=== PATIENT | male | born 1965 ===

== ENCOUNTER 2023-07-07 04:02 | Day surgery (SDC) | payer OTHER ==
[2023-07-05 13:44] VITALS: BMI 25.7
[2023-07-07] MEDS ORDERED: BUPIVACAINE HCL/PF 0.75% 10 ML VIAL ONE (07:44)
[2023-07-07] MEDS ORDERED: LIDOCAINE HCL/PF 1% SDV 5ML VIAL ONE (07:44)
[2023-07-07] MEDS ORDERED: ACETAMINOPHEN 500 MG TABLET (FP) PO PRN (11:04)
[2023-07-07] MEDS ORDERED: BUPIVACAINE HCL/PF 0.75% 10 ML VIAL NR ONE ×2 (13:41→13:42)
[2023-07-07] MEDS ORDERED: LIDOCAINE 1% P/F 10 MG/ML VIAL INF ONE ×2 (13:41→13:42)
[2023-07-07 14:03] VITALS: RESP 20
[2023-07-07 15:19] VITALS: BP 137/79; PULSE 69; TEMP 97.8
== END 2023-07-07 15:20 | disposition home or self-care (01) ==
LOC: JASU-SURG 04:02
PROVIDERS: ATTEND Pain Medicine Pain Medicine
PROC: 3E0T33Z Introduction of Anti-inflammatory into Peripheral Nerves and Plexi, Percutaneous Approach (ICD-10-PCS; 2023-07-07)
PROC: 3E0T3BZ Introduction of Anesthetic Agent into Peripheral Nerves and Plexi, Percutaneous Approach (ICD-10-PCS; principal; 2023-07-07 14:45)
DX: M47.816 Spondylosis without myelopathy or radiculopathy, lumbar region (principal)
CPT/HCPCS: 76000-TC-FY

== ENCOUNTER 2023-08-11 04:16 | Day surgery (SDC) | payer OTHER ==
[2023-08-08 11:46] VITALS: BMI 25.7
[~2023-08-11 04:16] MED LIST: BUPIVACAINE HCL/PF 0.75% 10 ML VIAL NR ONE; LIDOCAINE 1% P/F 10 MG/ML VIAL INF ONE
[2023-08-11] MEDS ORDERED: BUPIVACAINE HCL/PF 0.75% 10 ML VIAL ONE (07:18)
[2023-08-11] MEDS ORDERED: LIDOCAINE HCL/PF 1% SDV 5ML VIAL ONE (07:19)
[2023-08-11 07:58] VITALS: RESP 18
[2023-08-11] MEDS ORDERED: LIDOCAINE 1% P/F 10 MG/ML VIAL INF ONE (10:19)
[2023-08-11] MEDS ORDERED: BUPIVACAINE HCL/PF 0.75% 10 ML VIAL NR ONE (10:19)
[2023-08-11 10:46] VITALS: TEMP 97.8
[2023-08-11 10:55] VITALS: BP 123/76; PULSE 69
[2023-08-11] MEDS ORDERED: ACETAMINOPHEN 500 MG TABLET (FP) PO PRN (11:10)
== END 2023-08-11 10:52 | disposition home or self-care (01) ==
LOC: JASU-SURG 04:16
PROVIDERS: ATTEND Pain Medicine Pain Medicine
PROC: 3E0T33Z Introduction of Anti-inflammatory into Peripheral Nerves and Plexi, Percutaneous Approach (ICD-10-PCS; 2023-08-11)
PROC: 3E0T3BZ Introduction of Anesthetic Agent into Peripheral Nerves and Plexi, Percutaneous Approach (ICD-10-PCS; principal; 2023-08-11 09:30)
DX: M47.816 Spondylosis without myelopathy or radiculopathy, lumbar region (principal)
CPT/HCPCS: 76000-TC-FY

== ENCOUNTER 2023-12-19 04:21 | Day surgery (SDC) | payer OTHER ==
[2023-12-18 10:31] VITALS: BMI 25.7
[2023-12-19] MEDS ORDERED: LIDOCAINE HCL/PF 2% SDV 5ML VIAL ONE (07:33)
[2023-12-19] MEDS ORDERED: BUPIVACAINE HCL/PF 0.75% 10 ML VIAL ONE (07:33)
[2023-12-19] MEDS ORDERED: DEXAMETHASONE SOD PHOSPHATE 10 MG/1 ML VIAL ONE (07:34)
[2023-12-19] MEDS ORDERED: LIDOCAINE HCL/PF 1% SDV 5ML VIAL ONE (07:34)
[2023-12-19 09:44] VITALS: RESP 18; TEMP 97.5
[2023-12-19] MEDS: LIDOCAINE HCL/PF 2% SDV 5ML VIAL INF ONE (11:09)
[2023-12-19] MEDS: LIDOCAINE HCL 1% PRESERVATIVE FREE - 30ML VIAL IJ ONE (11:10)
[2023-12-19] MEDS: BUPIVACAINE HCL/PF 0.75% 10 ML VIAL NR ONE (11:11)
[2023-12-19] MEDS: DEXAMETHASONE SOD PHOSPHATE 10 MG/1 ML VIAL IVPUSH ONE (11:11)
[2023-12-19 11:37] VITALS: BP 121/78; PULSE 66
== END 2023-12-19 12:16 | disposition home or self-care (01) ==
LOC: JASU-SURG 04:21
PROVIDERS: ATTEND Pain Medicine Pain Medicine
PROC: 015B3ZZ Destruction of Lumbar Nerve, Percutaneous Approach (ICD-10-PCS; principal; 2023-12-19 10:15)
DX: M47.816 Spondylosis without myelopathy or radiculopathy, lumbar region (principal)
CPT/HCPCS: 76000-TC-FY; J1100

== ENCOUNTER 2024-12-19 07:28 | Day surgery (SDC) | payer OTHER ==
[2024-12-18 10:01] VITALS: BMI 26.9
[2024-12-19 13:47] VITALS: RESP 18
[2024-12-19] MEDS: LIDOCAINE HCL 1% PRESERVATIVE FREE - 30ML VIAL IJ ONE (14:30)
[2024-12-19] MEDS: LIDOCAINE HCL/PF 2% SDV 5ML VIAL INF ONE ×2 (14:32→14:38)
[2024-12-19] MEDS: BUPIVACAINE HCL/PF 0.75% 10 ML VIAL NR ONE ×3 (14:33→14:44)
[2024-12-19 15:05] VITALS: BP 136/83; PULSE 67; TEMP 98.2
== END 2024-12-19 15:30 | disposition home or self-care (01) ==
LOC: JASU-SURG 07:28
PROVIDERS: ATTEND Pain Medicine Pain Medicine
PROC: 015B3ZZ Destruction of Lumbar Nerve, Percutaneous Approach (ICD-10-PCS; principal; 2024-12-19 15:00)
DX: M47.816 Spondylosis without myelopathy or radiculopathy, lumbar region (principal)
CPT/HCPCS: 76000-TC-FY